=== PATIENT | female | born 1955 | race Caucasian/White ===

== ENCOUNTER → 2017-01-10 | Outpatient (CLI) | payer MEDICARE, OTHER | LOC: EMI 07:59 | DX: M54.2 Cervicalgia (principal); M25.78 Osteophyte, vertebrae; M48.02 Spinal stenosis, cervical region; R90.89 Other abnormal findings on diagnostic imaging of central nervous system; M99.51 Intervertebral disc stenosis of neural canal of cervical region; Z98.1 Arthrodesis status | CPT/HCPCS: 72141 ==

== ENCOUNTER → 2022-05-16 | Outpatient (CLI) | payer MEDICARE, OTHER | LOC: EXRD 05-09 09:30 → MRI 08:30 → EXRD 10:30 → MRI 13:14 | DX: M81.0 Age-related osteoporosis without current pathological fracture (principal); R42 Dizziness and giddiness; M51.17 Intervertebral disc disorders with radiculopathy, lumbosacral region; Z98.1 Arthrodesis status | CPT/HCPCS: 70551; 72148; 77080 ==